=== PATIENT | female | born 1970 | race Caucasian/White ===

== ENCOUNTER 2016-07-15 09:56 | Day surgery (SDC) | payer BC ==
[~2016-07-15 09:56] MED LIST: ACETAMINOPHEN 1,000 MG/100 ML BTL IV ONE; CEFAZOLIN 2 Gram 2 GM/50 ML BAG IVPB ONE; FAMOTIDINE 20MG TABLET PO ONE; MECLIZINE 25 MG TABLET PO ONE; METOCLOPRAMIDE 10 MG TABLET PO ONE
[2016-07-15] MEDS ORDERED: MIDAZOLAM HCL 2MG/2ML VIAL IV ONE (14:00)
[2016-07-15] MEDS ORDERED: PROPOFOL 10 MG/ML VIAL IV ONE (14:00)
[2016-07-15] MEDS ORDERED: LIDOCAINE 2% MDV (20MG/ML) 20ML VIAL IV ONE (14:00)
[2016-07-15] MEDS ORDERED: FENTANYL PF 100MCG/2ML VIAL IV ONE (14:00)
[2016-07-15] MEDS ORDERED: HYDROCODONE/APAP 7.5/325MG TABLET PO ONE (16:54)
[2016-07-15] MEDS ORDERED: LIDOCAINE 1% W/EPI 1:200,000 MPF 30ML SQ ONE (16:54)
[2016-07-15] MEDS ORDERED: BUPIVACAINE 0.5% W/EPI MPF 30 ML VIAL IVP ONE (16:54)
[2016-07-15] MEDS ORDERED: CEFAZOLIN 1G VIAL IM ONE (16:54)
--- NOTE | 2016-07-22 18:56 | Operative Note ---
DATE OF SURGERY: 07/15/2016 PREOPERATIVE DIAGNOSES: 1. Post lumbar laminectomy syndrome, ICD10 code M96.1. 2. Lumbar radiculitis, ICD10 code M54.16 and M54.17. 3. Spinal cord stimulator implant 2 leads, 1 generator nonfunctional. OPERATION: 1. Incision, subdissection, and removal of 2 indwelling spinal cord stimulators. 2. Incision, subdissection, and removal of internal pulsed generator. Surgeon: Jesus Thapa, Anesthesia: Local with sedation. Anesthesia Provider: Ayan Jeter Indication: This patient presents with a history of post-laminectomy radiculitis. Approximately 1-2 years ago, the patient had a spinal cord stimulator implant for chronic pain control. Although this did appear to help over the last number of months, this patient has had a significant amount of problem with recharging and reprogramming. She requested removal. PROCEDURE: Intravenous line, vital sign monitoring, IV sedation. Prepped, draped, sterile technique. Patient positioned prone. Under imaging, the 2-leak implant at T12-L1 to L1-L2 incision infiltrated, incision made, and subcutaneous dissection was conducted to the supraspinous fascia. The anchoring suture was removed and the 2 leads removed intact, all electrodes accounted for. At the left posterior gluteal margin generator pouch, skin infiltrated, incision made and subcutaneous dissection was conducted to the generator pouch. The generator was then freed of the retaining suture and then exteriorized and removed. Bifurcate extensions interfacing the generator to the leads were also removed intact. Antibiotic irrigation and Bovie for hemostasis. The incisions were then closed with Vicryl for fascia, running subcuticular Vicryl for skin, Dermabond closure system placed. She was transported to the recovery room stable showing no side effects from the procedure or the sedation. DISCHARGE INSTRUCTIONS: 1. Sites to remain clean and dry. No showering or bathing in any way that would disrupt dressings. If it happens, contact the clinic. 2. Standard medications resumed including the antibiotic Levaquin 500 mg once a day for 14 days. 3. The office will contact the patient in 3-5 days to set up the appointment in 7-10 days to evaluate the incisions. Until that point, she is to keep the dressings intact, limit activities including bend, lift, push, pull. All other instructions provided, numbers to contact with problems given. At that point she will be discharged. CC: Mi SANTO
== END 2016-07-15 12:55 | disposition home or self-care (01) ==
LOC: SUR 09:56
PROVIDERS: ATTEND Pain Medicine Interventional Pain Medicine
DX: T85.199A Other mechanical complication of other implanted electronic stimulator of nervous system, initial encounter (principal); T85.193A Other mechanical complication of implanted electronic neurostimulator, generator, initial encounter; M96.1 Postlaminectomy syndrome, not elsewhere classified; M54.16 Radiculopathy, lumbar region; M54.17 Radiculopathy, lumbosacral region
CPT/HCPCS: 63661; 63688; 00300; J3010; J0690

== ENCOUNTER 2016-07-16 07:36 | Day surgery (SDC) | payer BC ==
[2016-07-16] MEDS ORDERED: FENTANYL PF 100MCG/2ML VIAL IV ONE (14:00)
[2016-07-16] MEDS ORDERED: ONDANSETRON HCL IV 4 MG/2 ML VIAL IVP ONE (14:00)
[2016-07-16] MEDS ORDERED: MIDAZOLAM HCL 2MG/2ML VIAL IV ONE (14:00)
[2016-07-16] MEDS ORDERED: KETOROLAC 30 MG/ML VIAL IVP ONE (14:00)
[2016-07-16] MEDS ORDERED: PROPOFOL 10 MG/ML VIAL IV ONE (14:00)
[2016-07-16] MEDS ORDERED: METOCLOPRAMIDE HCL 10 MG/2 ML VIAL IVP ONE (14:00)
[2016-07-16] MEDS ORDERED: LIDOCAINE 2% MDV (20MG/ML) 20ML VIAL IV ONE (14:00)
[2016-07-16] MEDS ORDERED: SEVOFLURANE 250 ML INH ONE (14:00)
[2016-07-16] MEDS ORDERED: HYDROMORPHONE HCL 2 MG/ML VIAL IV ONE (15:25)
[2016-07-16] MEDS ORDERED: OXYCODONE HCL/APAP 5MG/325MG TABLET PO ONE (15:25)
[2016-07-16] MEDS ORDERED: BUPIVACAINE 0.25% W/EPI MPF 30ML VIAL IVP ONE (15:25)
--- NOTE | 2016-07-23 15:40 | Operative Note ---
DATE OF SURGERY: 07/16/2016 Surgeon: Jaden Jeffries DO PREOPERATIVE DIAGNOSES: 1. Torn lateral meniscus of the left knee. 2. Chondromalacia of the left knee. POSTOPERATIVE DIAGNOSES: 1. Torn medial and lateral menisci of the left knee. 2. Synovitis of the left knee. 3. 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 OPERATION: 1. Arthroscopic partial medial and lateral meniscectomy, left knee. 2. Arthroscopic partial synovectomy, left knee. 3. Arthroscopic chondroplasty of medial femoral condyle of the left knee. PROCEDURE: This 46-year-old female was taken to the operating room and placed in the supine position on the operating room table where general anesthesia was induced. The left lower extremity was elevated, exsanguinated, and tourniquet inflated to 300 mmHg. Arthroscopic knee andersen applied. Left knee prepped with Hibiclens and draped in the usual sterile fashion. An inferolateral portal was established for the 4 mm arthroscope and initial evaluation of the joint demonstrated normal appearance of the suprapatellar pouch. Patellofemoral articulation appeared essentially normal. The medial and lateral gutters were examined and found to be normal. The medial compartment was entered and she demonstrated a tear of the posterior horn of the medial meniscus. This tear had apex at approximately the 12-o'clock position. Utilizing the basket forceps and rotating shaver, we resected back to the apex of the tear and then smoothed and contoured into a stable rim. It was re-probed and confirmed to be stable. The patient had very little articular cartilage defect on the medial femoral condyle. Minor scuffing of the articular cartilage was present there. This was a relatively small area just below the meniscal rest of grade 2 changes and approximately 1 cm in diameter. The intercondylar notch was examined. The anterior cruciate ligament graft appeared to be intact and functioning. The lateral compartment was entered and the tear of the posterior horn of the lateral meniscus was also present. This tear did not enter the popliteal hiatus but the apex of the tear was at approximately the 2-o'clock position right at the margin of the popliteal hiatus. The basket forceps and rotating shaver were used to resect unstable meniscus. It was re-probed and confirmed to be stable. The wound was then copiously irrigated and suctioned. The instruments were removed. Portal was infiltrated with 0.25% Marcaine with epinephrine. Sterile dressings applied. Tourniquet and knee andersen released and the patient was taken to the recovery room in satisfactory condition. GROSS PATHOLOGY: This patient demonstrated tears of both the medial and lateral menisci as described above. In addition, grade 2 chondromalacia of the area of the medial femoral condyle as described. This is the second dictation of this operative report. 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 CC: Mi SANTO
== END 2016-07-16 11:20 | disposition home or self-care (01) ==
LOC: SUR 07:36
PROVIDERS: ATTEND Orthopaedic Surgery
DX: S83.282A Other tear of lateral meniscus, current injury, left knee, initial encounter (principal); S83.242A Other tear of medial meniscus, current injury, left knee, initial encounter; M94.262 Chondromalacia, left knee
CPT/HCPCS: J1885; J2405; J2765

== ENCOUNTER 2016-11-15 12:59 | Emergency (ER) | payer BC ==
[2016-11-15 14:34] LABS: BASO % 0.3 % (0-6); EOS % 1.3 % (0-6); GRAN % 76.8 % (47-80); HEMOGLOBIN 14.4 gm/dl (11.6-16.0); LYMPH % 14.7 % (16-45); MEAN CELL VOLUME 96.9 fl (81-97); MEAN CORPUSCULAR HEMOGLOBIN 31.7 pg (27-33); MEAN CORPUSCULAR HGB CONC 32.7 g/dl (32-36); MEAN PLATELET VOLUME 14.5 fl (7.4-10.4); MONO % 6.9 % (0-9); PLATELET COUNT 201 K/uL (130-400); RED BLOOD COUNT 4.54 M/uL (3.80-5.40); RED CELL DISTRIBUTION WIDTH 14.3 % (11.5-14.5); WHITE BLOOD COUNT W/O DIFF 11.4 K/uL (4.2-12.2)
--- NOTE | 2016-11-15 15:49 | Emergency Department Record ---
History of Present Illness - General Chief complaint: ENT Stated complaint: SORE THROAT,HEADACHE,COUGH,WHITE SPOTS IN THROAT Time Seen by Provider: 11/15/16 13:53 Source: Patient Mode of Arrival: Ambulatory Limitations: No limitations - History of Present Illness Initial comments: pt has a sore throat, non prod cough, rhinitis. MD complaint: Difficulty swallowing, Sore throat Onset/Timin -: Days(s) Severity: Moderate Severity scale (1-10): 4 Quality: Aching, Burning Consistency: Constant Improves with: Rest Worsens with: Eating, Swallowing Associated Symptoms: Cough, Rhinorrhea, Sore throat - Related Data Allergies Allergy/AdvReac Type Severity Reaction Status Date / Time erythromycin base Allergy RASH Verified 11/15/16 13:22 prochlorperazine edisylate Allergy PT UNSURE Verified 11/15/16 13:22 [From Compazine] OF REACTION prochlorperazine maleate Allergy PT UNSURE Verified 11/15/16 13:22 [From Compazine] OF REACTION Travel Screening - Travel/Exposure Within Last 30 Days Have you traveled within the last 30 days?: No - Travel/Exposure Within Last Year Have you traveled outside the [place] in the last year?: No - Additonal Travel Details Have you been exposed to anyone with a communicable illness?: No - Travel Symptoms Symptom Screening: None Review of Systems Reviewed: No additional complaints except as noted below Constitutional: Reports: As per HPI. Denies: Chills, Fever, Malaise, Night sweats, Weakness, Weight change Eyes: Reports: As per HPI. Denies: Eye discharge, Eye pain, Photophobia, Vision change ENT: Reports: As per HPI. Denies: Congestion, Dental pain, Ear pain, Epistaxis , Hearing loss, Throat pain Respiratory: Reports: As per HPI. Denies: Cough, Dyspnea, Hemoptysis, Stridor, Wheezes Cardiovascular: Reports: As per HPI. Denies: Arrhythmia, Chest pain, Dyspnea on exertion, Edema, Murmurs, Orthopnea, Palpitations, Paroxysmal nocturnal dyspnea, Rheumatic Fever, Syncope Endocrine: Reports: As per HPI. Denies: Fatigue, Heat or cold intolerance, Polydipsia, Polyuria Gastrointestinal: Reports: As per HPI. Denies: Abdominal pain, Constipation, Diarrhea, Hematemesis, Hematochezia, Melena, Nausea, Vomiting Genitourinary: Reports: As per HPI. Denies: Abnormal menses, Discharge, Dyspareunia, Dysuria, Frequency, Hematuria, Incontinence, Retention, Urgency Musculoskeletal: Reports: As per HPI. Denies: Arthralgia, Back pain, Gout, Joint swelling, Myalgia, Neck pain Skin: Reports: As per HPI. Denies: Bruising, Change in color, Change in hair/ nails, Lesions, Pruritus, Rash Neurological: Reports: As per HPI. Denies: Abnormal gait, Confusion, Headache, Numbness, Paresthesias, Seizure, Tingling, Tremors, Vertigo, Weakness Psychiatric: Reports: As per HPI. Denies: Anxiety, Auditory hallucinations, Depression, Homicidal thoughts, Suicidal thoughts, Visual hallucinations Hematological/Lymphatic: Reports: As per HPI. Denies: Anemia, Blood Clots, Easy bleeding, Easy bruising, Swollen glands Past Medical History - SOCIAL HISTORY Smoking Status: Current every day smoker Alcohol Use: Occasional Drug Use: None - RESPIRATORY Hx Respiratory Disorders: No - CARDIOVASCULAR Hx Cardio Disorders: Yes Hx Deep Vein Thrombosis: Yes (over 1 year ago) Hx Edema: Yes (left ankle) - NEURO Hx Neuro Disorders: Yes Hx Headaches: Yes Hx of Migraines: Yes (HX OF DAILY MIGRAINE S BUT HAS BEEN MUCH LESS) - GI Hx GI Disorders: Yes Hx Reflux: Yes (otc meds) - Hx Genitourinary Disorders: No Hx Bladder Problem: No (DENIES ANY ISSUES NOW) - ENDOCRINE Hx Endocrine Disorders: No - MUSCULOSKELETAL Hx Musculoskeletal Disorders: Yes Hx Arthritis: Yes Hx Back Injury: No (DENIES INJURY JUST PROGRESSION OF PAIN) - PSYCH Hx Psych Problems: Yes Hx Anxiety: Yes - HEMATOLOGY/ONCOLOGY Hx Hematology/Oncology Disorders: Yes Hx Clotting Problems: Yes (hx of DVT) Family Medical History Any Significant Family History?: Yes Hx Alcohol Use: Father Hx Cancer: Father, Mother Hx Depression: Father Hx Heart Disease: Father Hx HTN: Father Hx Seizures: Brother/Sister Physical Exam - General General Appearance: Alert, Oriented x3, Cooperative, Mild distress - Head Head exam: Normal inspection - Eye Eye exam: Normal appearance, PERRL, EOMI Pupils: Normal accommodation - ENT ENT exam: Normal exam, Mucous membranes moist, Normal external ear exam, Normal orophraynx Ear exam: Normal external inspection. negative: External canal tenderness Nasal Exam: Normal inspection. negative: Discharge, Sinus tenderness Mouth exam: Normal external inspection, Tongue normal Teeth exam: Normal inspection. negative: Dental caries Throat exam: Tonsillar erythema. negative: Tonsillar exudate - Neck Neck exam: Normal inspection, Full ROM. negative: Tenderness - Respiratory Respiratory exam: Normal lung sounds bilaterally. negative: Respiratory distress - Cardiovascular Cardiovascular Exam: Regular rate, Normal rhythm, Normal heart sounds - GI/Abdominal GI/Abdominal exam: Soft, Normal bowel sounds. negative: Tenderness - Rectal Rectal exam: Deferred - exam: Deferred - Extremities Extremities exam: Normal inspection, Full ROM, Normal capillary refill. negative: Tenderness - Back Back exam: Reports: Normal inspection, Full ROM. Denies: Muscle spasm, Rash noted, Tenderness - Neurological Neurological exam: Alert, Normal gait, Oriented X3, Reflexes normal - Psychiatric Psychiatric exam: Normal affect, Normal mood - Skin Skin exam: Dry, Intact, Normal color, Warm Course Vital Signs 11/15/16 13:11 Temperature 98.7 F Pulse Rate [ 102 H Pulse Ox Probe] Respiratory 18 Rate Blood Pressure 122/76 [Left Arm] Pulse Ox 98 Medical Decision Making - Lab Data Result diagrams: 11/15/16 14:24 Lab Results 11/15/16 11/15/16 11/15/16 Range/Units 13:15 14:24 14:24 WBC 11.4 (4.2-12.2) K/uL RBC 4.54 (3.80-5.40) M/uL Hgb 14.4 (11.6-16.0) gm/dl Hct 44.0 (35.0-47.0) % MCV 96.9 (81-97) fl MCH 31.7 (27-33) pg MCHC 32.7 (32-36) g/dl RDW 14.3 (11.5-14.5) % Plt Count 201 (130-400) K/uL MPV 14.5 H (7.4-10.4) fl Gran % 76.8 (47-80) % Lymphocytes % 14.7 L (16-45) % Monocytes % 6.9 (0-9) % Eosinophils % 1.3 (0-6) % Basophils % 0.3 (0-6) % Monoscreen Negative (NEGATIVE) Group A Strep Screen Negative (NEGATIVE) Disposition Disposition: Discharge Clinical Impression: Pharyngitis Qualifiers: Pharyngitis/tonsillitis etiology: unspecified etiology Qualified Code(s): J02.9 - Acute pharyngitis, unspecified Disposition: Home, Self-Care Condition: (1) Good Instructions: Pharyngitis (ED) Additional Instructions: follow up with family doctor. return sooner if worse. motrin and tylenol as needed Forms: Patient Portal Access, Return to Work/School Quality - Quality Measures Quality Measures: N/A - Blood Pressure Screening Does Patient Have Any of the Following: No Blood Pressure Classification: Pre-Hypertensive BP Reading Systolic Measurement: 122 Diastolic Measurement: 76 Screening for High Blood Pressure: < Pre-Hypertensive BP, F/U Documented > [ G8950] Pre-Hypertensive Follow-up Interventions: Follow-up with rescreen every year.
--- NOTE | 2016-11-16 12:42 | RADIOLOGY REPORT ---
EXAM: CHEST, TWO VIEWS HISTORY: CHEST PAIN WHEN COUGHING FOR THE PAST TWO DAYS. TECHNIQUE: PA and lateral upright views of the chest were obtained. Comparison: Previous thoracic spine series dated 02/27/15. FINDINGS: The heart, mediastinum and pulmonary vasculature are normal. A stable calcified granuloma is present within the right upper lobe. There are no acute infiltrates or effusions. There is no pneumothorax. The bones appear intact. IMPRESSION: 1. NO ACUTE CHEST PATHOLOGY. 2. STABLE OLD GRANULOMATOUS DISEASE. JOB NUMBER: [id number] [facility]
== END 2016-11-15 16:01 | disposition home or self-care (01) ==
LOC: ER 12:59
DX: J02.9 Acute pharyngitis, unspecified (principal); R51 Headache; R13.10 Dysphagia, unspecified; R05 Cough
CPT/HCPCS: 71020; 85025; 86308; 87880; 99283

== ENCOUNTER 2017-02-05 20:27 | Emergency (ER) | payer BC ==
[2017-02-05] MEDS ORDERED: DIPHENHYDRAMINE HCL IV 50 MG/ML VIAL IVP ONE (20:37)
[2017-02-05] MEDS ORDERED: METOCLOPRAMIDE HCL 10 MG/2 ML VIAL IVP ONE (20:37)
[2017-02-05] MEDS ORDERED: KETOROLAC 30 MG/ML VIAL IVP ONE (20:37)
[2017-02-05] MEDS ORDERED: 0.9 % SODIUM CHLORIDE 1000ML 1,000 ML IV SCH (20:45)
--- NOTE | 2017-02-05 20:49 | Emergency Department Record ---
History of Present Illness - General Chief Complaint: Headache Migraine Stated Complaint: SINGER Time Seen by Provider: 02/05/17 20:32 Source: Patient Mode of Arrival: Ambulatory Limitations: No limitations - History of Present Illness Initial Comments: 46 yo female presents to ED for evaluation of a "migraine" headache that began earlier today. Patient reports a history of intermittent headaches that are similar to tonight symptoms, denies fevers, chills, neck stiffness, or anticoagulation medication use at home. Patient reports receiving IM Fiorcet that improved her symptoms earlier this year at her PCP's office. MD Complaint: Headache Onset/Timin -: Hour(s) Onset Description: Gradual, At rest Location: Frontal, Occipital Severity: Severe Severity scale (1-10): 10 Quality: Similar to previous headaches Context: Occured at rest Associated Symptoms: Nausea, Photophobia, Sensitivity to sound, Vision loss, Vomiting Treatments Prior to Arrival: Migraine medication, Prescription analgesic - Related Data Home Medications Medication Instructions Recorded Confirmed Last Taken Sumatriptan Succinate [Imitrex] 50 mg PO ASDIR PRN 02/05/17 02/05/17 Unknown Allergies Allergy/AdvReac Type Severity Reaction Status Date / Time erythromycin base Allergy RASH Verified 11/15/16 13:22 Travel Screening - Travel/Exposure Within Last 30 Days Have you traveled within the last 30 days?: No Review of Systems Constitutional: Denies: Chills, Fever, Malaise, Night sweats Eyes: Denies: Eye discharge, Eye pain ENT: Denies: Congestion, Ear pain, Epistaxis Respiratory: Denies: Cough, Dyspnea Cardiovascular: Denies: Chest pain, Dyspnea on exertion Endocrine: Denies: Fatigue, Heat or cold intolerance Gastrointestinal: Denies: Abdominal pain, Nausea, Vomiting Genitourinary: Denies: Incontinence, Retention Musculoskeletal: Denies: Arthralgia, Back pain, Gout, Joint swelling Skin: Denies: Bruising, Change in color Neurological: Reports: Headache. Denies: Abnormal gait, Confusion, Seizure Psychiatric: Denies: Anxiety Hematological/Lymphatic: Denies: Anemia, Blood Clots Past Medical History - SOCIAL HISTORY Smoking Status: Current every day smoker Alcohol Use: None Drug Use: None - RESPIRATORY Hx Respiratory Disorders: No - CARDIOVASCULAR Hx Cardio Disorders: Yes Hx Deep Vein Thrombosis: Yes (over 1 year ago) Hx Edema: Yes (left ankle) - NEURO Hx Neuro Disorders: Yes Hx Headaches: Yes Hx of Migraines: Yes (HX OF DAILY MIGRAINE S BUT HAS BEEN MUCH LESS) - GI Hx GI Disorders: Yes Hx Reflux: Yes (otc meds) - Hx Genitourinary Disorders: No Hx Bladder Problem: No (DENIES ANY ISSUES NOW) - ENDOCRINE Hx Endocrine Disorders: No - MUSCULOSKELETAL Hx Musculoskeletal Disorders: Yes Hx Arthritis: Yes Hx Back Injury: No (DENIES INJURY JUST PROGRESSION OF PAIN) - PSYCH Hx Psych Problems: Yes Hx Anxiety: Yes - HEMATOLOGY/ONCOLOGY Hx Hematology/Oncology Disorders: Yes Hx Clotting Problems: Yes (hx of DVT) Family Medical History Any Significant Family History?: Yes Hx Alcohol Use: Father Hx Cancer: Father, Mother Hx Depression: Father Hx Heart Disease: Father Hx HTN: Father Hx Seizures: Brother/Sister Physical Exam - General General Appearance: Alert, Oriented x3, Cooperative, Moderate distress Limitations: No limitations - Head Head exam: Atraumatic, Normocephalic, Normal inspection Head exam detail: negative: Abrasion, Contusion, Lind's sign, General tenderness, Hematoma, Laceration - Eye Eye exam: Normal appearance. negative: Conjunctival injection, Periorbital swelling, Periorbital tenderness, Scleral icterus - ENT Ear exam: negative: Auricular hematoma, Auricular trauma Nasal Exam: negative: Active bleeding, Discharge, Dried blood, Foreign body Mouth exam: negative: Drooling, Laceration, Muffled voice, Tongue elevation - Neck Neck exam: Normal inspection. negative: Meningismus, Tenderness - Respiratory Respiratory exam: Normal lung sounds bilaterally. negative: Rales, Respiratory distress, Rhonchi, Stridor - Cardiovascular Cardiovascular Exam: Regular rate, Normal rhythm, Normal heart sounds - GI/Abdominal GI/Abdominal exam: Soft. negative: Rebound, Rigid, Tenderness - Rectal Rectal exam: Deferred - exam: Deferred - Extremities Extremities exam: Normal inspection. negative: Calf tenderness, Pedal edema, Tenderness - Back Back exam: Denies: CVA tenderness (R), CVA tenderness (L) - Neurological Neurological exam: Alert, Normal gait, Oriented X3 - Psychiatric Psychiatric exam: Normal affect, Normal mood - Skin Skin exam: Normal color. negative: Abrasion Type of lesion: negative: abrasion Course Vital Signs 02/05/17 20:31 Temperature 98.2 F Pulse Rate 86 Respiratory 18 Rate Blood Pressure 107/95 Pulse Ox 96 - Reevaluation(s) Reevaluation #1: 02/05/17 22:11 Patient reports mild improvement in her headache symptoms (7.5/10 from 9/10), will administer fentanyl and solumedrol and reassess. Reevaluation #2: 02/05/17 22:58 Patient reassessed following solumedrol and fentanyl, reports that her headache pain symptoms are improved to 3/10 from 7.5/10 and appears stable for discharge at this time. Disposition Disposition: Discharge Clinical Impression: Headache Qualifiers: Headache type: unspecified Headache chronicity pattern: acute headache Intractability: not intractable Qualified Code(s): R51 - Headache Disposition: Home, Self-Care Condition: (2) Stable Instructions: Acute Headache (ED) Additional Instructions: Return to ED if your symptoms worsen or if you have any concerns. Follow-up with Dr. Gifford in 3-5 days as directed. Forms: Patient Portal Access Time of Disposition: 22:59 Quality - Quality Measures Quality Measures: N/A - Blood Pressure Screening Does Patient Have Any of the Following: No Blood Pressure Classification: Hypertensive Reading Systolic Measurement: 107 Diastolic Measurement: 95 Screening for High Blood Pressure: < First Hypertensive BP, F/U Documented > [ G8950] First Hypertensive Follow-up Interventions: Referral to alternative/primary care provider.
[2017-02-05] MEDS ORDERED: FENTANYL PF 100MCG/2ML VIAL IVP ONE (22:10)
[2017-02-05] MEDS ORDERED: METHYLPREDNISOLONE PF 125MG/VIAL IVP ONE (22:10)
== END 2017-02-05 23:18 | disposition home or self-care (01) ==
LOC: ER 20:27
DX: R51 Headache (principal); R11.2 Nausea with vomiting, unspecified; H53.149 Visual discomfort, unspecified
CPT/HCPCS: 99284 ×2; 96374; 96375; J1885; J3010; J1200; J2765; J2930; J7030

== ENCOUNTER 2017-10-02 14:17 | Emergency (ER) | payer BC ==
[2017-10-02] MEDS ORDERED: KETOROLAC 30 MG/ML VIAL IM ONE (14:32)
--- NOTE | 2017-10-02 14:36 | Emergency Department Record ---
History of Present Illness - General Chief complaint: Extremity Problem Stated complaint: LT KNEE PAIN Time Seen by Provider: 10/02/17 14:27 Source: Patient Mode of Arrival: Ambulatory Limitations: No limitations - History of Present Illness Initial comments: The patient is here due to L knee pain. She was moving furniture yesterday and felt a "pop" and pain to the L knee. It has been quite painful since. She has been able to walk on it with pain. She denies any other injury or issue. The patient has had chronic L knee issues and has had surgery on it in the past. The patient did drive herself to the ER with no difficulty. MD Complaint: Extremity pain Onset/Timin -: Days(s) Location: Left, Knee Severity scale (1-10): 6 Quality: Aching Consistency: Constant - Related Data Home Medications Medication Instructions Recorded Confirmed Last Taken Sertraline HCl [Zoloft] 100 mg PO DAILY 10/02/17 10/02/17 1 Day Ago ~10/01/17 Previous Rx's Medication Instructions Recorded Naproxen [Naprosyn] 500 mg PO BID #14 tablet. 10/02/17 Allergies Allergy/AdvReac Type Severity Reaction Status Date / Time erythromycin base Allergy RASH Verified 10/02/17 14:25 Travel Screening - Travel/Exposure Within Last 30 Days Have you traveled within the last 30 days?: No - Travel/Exposure Within Last Year Have you traveled outside the [place] in the last year?: No - Additonal Travel Details Have you been exposed to anyone with a communicable illness?: No - Travel Symptoms Symptom Screening: None Review of Systems Constitutional: Denies: Chills, Fever Eyes: Denies: Eye discharge ENT: Denies: Congestion Respiratory: Denies: Cough, Dyspnea Past Medical History - SOCIAL HISTORY Smoking Status: Current every day smoker Alcohol Use: Occasional Drug Use: Occasional Drug Use Detail:: Marijuana - RESPIRATORY Hx Respiratory Disorders: No - CARDIOVASCULAR Hx Cardio Disorders: Yes Hx Deep Vein Thrombosis: Yes (over 1 year ago) Hx Edema: Yes (left ankle) - NEURO Hx Neuro Disorders: Yes Hx Headaches: Yes Hx of Migraines: Yes (HX OF DAILY MIGRAINE S BUT HAS BEEN MUCH LESS) - GI Hx GI Disorders: Yes Hx Reflux: Yes (otc meds) - Hx Genitourinary Disorders: No Hx Bladder Problem: No (DENIES ANY ISSUES NOW) - ENDOCRINE Hx Endocrine Disorders: No - MUSCULOSKELETAL Hx Musculoskeletal Disorders: Yes Hx Arthritis: Yes Hx Back Injury: No (DENIES INJURY JUST PROGRESSION OF PAIN) - PSYCH Hx Psych Problems: Yes Hx Anxiety: Yes - HEMATOLOGY/ONCOLOGY Hx Hematology/Oncology Disorders: Yes Hx Clotting Problems: Yes (hx of DVT) Family Medical History Any Significant Family History?: Yes Hx Alcohol Use: Father Hx Cancer: Father, Mother Hx Depression: Father Hx Heart Disease: Father Hx HTN: Father Hx Seizures: Brother/Sister Physical Exam - General General Appearance: Alert, Oriented x3, Cooperative, No acute distress - Head Head exam: Atraumatic, Normocephalic, Normal inspection - Eye Eye exam: Normal appearance, PERRL - Extremities Extremities exam: Normal inspection (There is no joint effusion or obvious bruising or swelling. ), Tenderness (There is diffuse anterior knee tenderness.) , Other (The L leg is NVI with normal pulses.). negative: Calf tenderness, Full ROM (There is significantly decreased ROM due to pain. ), Joint swelling, Pedal edema - Neurological Neurological exam: Alert. negative: Motor sensory deficit Course Vital Signs 10/02/17 14:20 Temperature 98.4 F Pulse Rate 52 L Respiratory 18 Rate Blood Pressure 119/68 Pulse Ox 95 - Reevaluation(s) Reevaluation #1: I did discuss the knee xray results and the need for an Immobilizer and crutches. She is to F/U with Dr. Jeffries this week in [facility]. 10/02/17 15:23 Medical Decision Making - Data Complexity MDM Data: X-Ray Ordered and/or Reviewed - Radiology Data Radiology results: Report reviewed (L knee: Post op changes. Trace suprapatellar effusion. ) Disposition Disposition: Discharge Clinical Impression: Knee pain, left Qualifiers: Chronicity: acute Qualified Code(s): M25.562 - Pain in left knee Disposition: Home, Self-Care Condition: (2) Stable Instructions: Knee Pain (ED) Additional Instructions: Please ice and elevate the L knee when possible the next 2 days. Take the pain medicines as directed and F/U with Dr. Jeffries in the Specialty clinic later this week. Do not walk on the L leg for 7 days and use the immobilizer and crutches at all times. Prescriptions: Naproxen [Naprosyn] 500 mg PO BID #14 tablet. Referrals: [facility] [Provider Group] Forms: Patient Portal Access Time of Disposition: 15:26 Quality - Quality Measures Quality Measures: N/A - Blood Pressure Screening View Details: Yes Does Patient Have Any of the Following: No Blood Pressure Classification: Normal BP Reading Systolic Measurement: 119 Diastolic Measurement: 68 Screening for High Blood Pressure: < Normal BP, F/U Not Required > [G8783]
[2017-10-02] MEDS ORDERED: HYDROCODONE/APAP 5/325MG TABLET PO ONE (15:27)
--- NOTE | 2017-10-04 10:34 | RADIOLOGY REPORT ---
EXAM: LEFT KNEE HISTORY: TWISTED THE LEFT KNEE LAST NIGHT. FELT A POP. PAIN WITH WEIGHT BEARING AND MOTION. PREVIOUS HISTORY OF ACL REPAIR. TECHNIQUE: Four views of the left knee were obtained. Comparison: 11/22/15. Encounter: Initial. FINDINGS: The patient is status post ACL repair. The orthopedic hardware is unchanged. There are tiny marginal osteophytes within the medial compartment. The bones appear intact. There is no acute fracture or dislocation. A small suprapatellar joint effusion is present. IMPRESSION: 1. SMALL JOINT EFFUSION. 2. NO ACUTE FRACTURE IDENTIFIED. 3. PREVIOUS ACL REPAIR. JOB NUMBER: [id number] [facility]
== END 2017-10-02 15:47 | disposition home or self-care (01) ==
LOC: ER 14:17
DX: G89.11 Acute pain due to trauma (principal); M25.562 Pain in left knee; X50.1XXA Overexertion from prolonged static or awkward postures, initial encounter; Y93.E9 Activity, other interior property and clothing maintenance; F17.210 Nicotine dependence, cigarettes, uncomplicated
CPT/HCPCS: 29105; 99283 ×2; 96372; 73562; J1885

== ENCOUNTER 2018-05-08 12:13 | Emergency (ER) | payer BC ==
[2018-05-08] MEDS ORDERED: IBUPROFEN 600 MG TABLET PO ONE (12:51)
--- NOTE | 2018-05-08 12:54 | Emergency Department Record ---
History of Present Illness - General Chief complaint: ENT Stated complaint: SORE & SWOLLEN THROAT,CONGESTED Time Seen by Provider: 05/08/18 12:41 Source: Patient Mode of Arrival: Ambulatory Limitations: No limitations - History of Present Illness Initial comments: pt has had a sore throat, prod green brown cough, green rhinitis for 2 days. MD complaint: Difficulty swallowing, Sore throat Onset/Timin -: Days(s) Location: Throat Severity: Moderate Severity scale (1-10): 7 Quality: Aching Consistency: Constant Improves with: None Worsens with: None Associated Symptoms: Cough, Fever, Pain with swallowing, Rhinorrhea, Sore throat - Related Data Home Medications Medication Instructions Recorded Confirmed Last Taken Amitriptyline HCl [Elavil] 10 mg PO DAILY 05/08/18 05/08/18 Unknown Previous Rx's Medication Instructions Recorded Amoxicillin [Amoxil] 875 mg PO BID #20 tab 05/08/18 Allergies Allergy/AdvReac Type Severity Reaction Status Date / Time erythromycin base Allergy RASH Verified 05/08/18 12:44 Travel Screening - Travel/Exposure Within Last 30 Days Have you traveled within the last 30 days?: No Review of Systems Reviewed: No additional complaints except as noted below Constitutional: Reports: As per HPI. Denies: Chills, Fever, Malaise, Night sweats, Weakness, Weight change Eyes: Reports: As per HPI. Denies: Eye discharge, Eye pain, Photophobia, Vision change ENT: Reports: As per HPI, Congestion, Throat pain. Denies: Dental pain, Ear pain, Epistaxis, Hearing loss Respiratory: Reports: As per HPI, Cough. Denies: Dyspnea, Hemoptysis, Stridor, Wheezes Cardiovascular: Reports: As per HPI. Denies: Arrhythmia, Chest pain, Dyspnea on exertion, Edema, Murmurs, Orthopnea, Palpitations, Paroxysmal nocturnal dyspnea, Rheumatic Fever, Syncope Endocrine: Reports: As per HPI. Denies: Fatigue, Heat or cold intolerance, Polydipsia, Polyuria Gastrointestinal: Reports: As per HPI. Denies: Abdominal pain, Constipation, Diarrhea, Hematemesis, Hematochezia, Melena, Nausea, Vomiting Genitourinary: Reports: As per HPI. Denies: Abnormal menses, Discharge, Dyspareunia, Dysuria, Frequency, Hematuria, Incontinence, Retention, Urgency Musculoskeletal: Reports: As per HPI. Denies: Arthralgia, Back pain, Gout, Joint swelling, Myalgia, Neck pain Skin: Reports: As per HPI. Denies: Bruising, Change in color, Change in hair/ nails, Lesions, Pruritus, Rash Neurological: Reports: As per HPI. Denies: Abnormal gait, Confusion, Headache, Numbness, Paresthesias, Seizure, Tingling, Tremors, Vertigo, Weakness Psychiatric: Reports: As per HPI. Denies: Anxiety, Auditory hallucinations, Depression, Homicidal thoughts, Suicidal thoughts, Visual hallucinations Hematological/Lymphatic: Reports: As per HPI. Denies: Anemia, Blood Clots, Easy bleeding, Easy bruising, Swollen glands Past Medical History - SOCIAL HISTORY Smoking Status: Current every day smoker Alcohol Use: None Drug Use: None - RESPIRATORY Hx Respiratory Disorders: No - CARDIOVASCULAR Hx Cardio Disorders: Yes Hx Deep Vein Thrombosis: Yes (after ACL) Hx Edema: Yes (left ankle) - NEURO Hx Neuro Disorders: Yes Hx Headaches: Yes Hx of Migraines: Yes (HX OF DAILY MIGRAINE S BUT HAS BEEN MUCH LESS) - GI Hx GI Disorders: Yes Hx Reflux: Yes (otc meds) - Hx Genitourinary Disorders: No Hx Bladder Problem: No (DENIES ANY ISSUES NOW) Comment:: s/p hyst - ENDOCRINE Hx Endocrine Disorders: No - MUSCULOSKELETAL Hx Musculoskeletal Disorders: Yes Hx Arthritis: Yes Hx Back Injury: No (DENIES INJURY JUST PROGRESSION OF PAIN) - PSYCH Hx Psych Problems: Yes Hx Anxiety: Yes Hx Depression: Yes - HEMATOLOGY/ONCOLOGY Hx Hematology/Oncology Disorders: Yes Hx Clotting Problems: Yes (hx of DVT post ACL repair) Family Medical History Any Significant Family History?: Yes Hx Alcohol Use: Father Hx Cancer: Father, Mother Hx Depression: Father Hx Heart Disease: Father Hx HTN: Father Hx Seizures: Brother/Sister Physical Exam - General General Appearance: Alert, Oriented x3, Cooperative, Mild distress - Head Head exam: Normal inspection - Eye Eye exam: Normal appearance, PERRL, EOMI Pupils: Normal accommodation - ENT ENT exam: Normal exam, Mucous membranes moist, Normal external ear exam, Normal orophraynx Ear exam: Normal external inspection. negative: External canal tenderness Nasal Exam: Normal inspection. negative: Discharge, Sinus tenderness Mouth exam: Normal external inspection, Tongue normal Teeth exam: Normal inspection. negative: Dental caries Throat exam: Tonsillar erythema. negative: Tonsillar exudate - Neck Neck exam: Normal inspection, Full ROM. negative: Tenderness - Respiratory Respiratory exam: Normal lung sounds bilaterally. negative: Respiratory distress - Cardiovascular Cardiovascular Exam: Regular rate, Normal rhythm, Normal heart sounds - GI/Abdominal GI/Abdominal exam: Soft, Normal bowel sounds. negative: Tenderness - Rectal Rectal exam: Deferred - exam: Deferred - Extremities Extremities exam: Normal inspection, Full ROM, Normal capillary refill. negative: Tenderness - Back Back exam: Reports: Normal inspection, Full ROM. Denies: Muscle spasm, Rash noted, Tenderness - Neurological Neurological exam: Alert, CN II-XII intact, Normal gait, Oriented X3 - Psychiatric Psychiatric exam: Normal affect, Normal mood - Skin Skin exam: Dry, Intact, Normal color, Warm Course Vital Signs 05/08/18 12:42 Temperature 97.9 F Pulse Rate 99 H Respiratory 18 Rate Blood Pressure 121/69 Pulse Ox 100 Disposition Disposition: Discharge Clinical Impression: Bronchitis Pharyngitis Qualifiers: Pharyngitis/tonsillitis etiology: unspecified etiology Qualified Code(s): J02.9 - Acute pharyngitis, unspecified Sinusitis Qualifiers: Sinusitis location: other Chronicity: acute Recurrence: non-recurrent Qualified Code(s): J01.80 - Other acute sinusitis Disposition: Home, Self-Care Condition: (1) Good Instructions: Pharyngitis (ED), Acute Bronchitis (ED), Sinusitis (ED) Additional Instructions: follow up with family doctor. return sooner if worse. push fluids. tylenol and motrin as needed. Prescriptions: Amoxicillin [Amoxil] 875 mg PO BID #20 tab Forms: Patient Portal Access Quality - Quality Measures Quality Measures: N/A - Blood Pressure Screening Does Patient Have Any of the Following: No Blood Pressure Classification: Pre-Hypertensive BP Reading Systolic Measurement: 121 Diastolic Measurement: 69 Screening for High Blood Pressure: < Pre-Hypertensive BP, F/U Documented > [ [id number]] Pre-Hypertensive Follow-up Interventions: Follow-up with rescreen every year.
== END 2018-05-08 13:48 | disposition home or self-care (01) ==
LOC: ER 12:13
DX: J20.9 Acute bronchitis, unspecified (principal); J02.9 Acute pharyngitis, unspecified; J01.80 Other acute sinusitis; R13.10 Dysphagia, unspecified; F17.210 Nicotine dependence, cigarettes, uncomplicated
CPT/HCPCS: 87880; 99282; 99283